=== PATIENT | male | born 1965 | race Caucasian/White ===

== ENCOUNTER 2017-08-27 12:09 | Inpatient (IN) | payer OTHER ==
[2017-08-27 12:51] VITALS: BMI 23.0
--- NOTE | 2017-08-27 15:12 | HP ---
CIWA Score - CIWA Score Nausea/Vomitin Muscle Tremors: 3 Anxiety: 3 Agitation: 2 Paroxysmal Sweats: 1-Minimal Palms Moist Orientation: 0-Oriented Tacttile Disturbances: 1-Very Mild Itch/Numbness Auditory Disturbances: 1-Very Mild Visual Disturbances: 0-None Headache: 2-Mild CIWA-Ar Total Score: 16 Admission ROS BHS - HPI Chief Complaint: i need help to stop drinking alcohol,cocaine Allergies/Adverse Reactions: Allergies Allergy/AdvReac Type Severity Reaction Status Date / Time No Known Allergies Allergy Verified 08/27/17 14:47 History of Present Illness: this 51 years old veronica chavira alcohol dependence and cocaine dependence,seeking detox,withdrawal symptom,last detox [facility] in [place] 9 years ago hiv since 1999 hepatitis c treated fell from height in 2000 treated at [facility] multiple fx of right wrist,right hand,right ribs with peumothorax weight loss no significant period of sobriety rupture of brain aneurysm in 2000 - Ebola screening Have you traveled outside of the country in the last 21 days: No Have you had contact with anyone from an Ebola affected area: No Have you been sick,other than usual withdrawal symptoms: No Do you have a fever: No - Review of Systems Constitutional: Loss of Appetite, Malaise, Night Sweats, Changes in sleep, Weakness, Unintentional Wgt. Loss EENT: reports: Nose Congestion Respiratory: reports: No Symptoms reported Cardiac: reports: No Symptoms Reported GI: reports: Diarrhea, Nausea, Vomiting, Abdominal cramping : reports: No Symptoms Reported Musculoskeletal: reports: Back Pain, Muscle Pain Integumentary: reports: Dryness Neuro: reports: Tremors Endocrine: reports: No Symptoms Reported Hematology: reports: No Symptoms Reported, Other (hiv) Psychiatric: reports: No Sypmtoms Reported, Judgement Intact, Mood/Affect Appropiate Patient History - Patient Medical History Hx Asthma: No Hx Chronic Obstructive Pulmonary Disease (COPD): No Hx Cancer: No Hx Cardiac Disorders: No Hx Congestive Heart Failure: No Hx Hypertension: No Hx Hypercholesterolemia: No Hx Pacemaker: No HX Cerebrovascular Accident: No Hx Seizures: No Hx Dementia: No Hx Diabetes: No Hx Gastrointestinal Disorders: No Hx Liver Disease: No Hx Genitourinary Disorders: No Hx Sexually Transmitted Disorders: No Hx Renal Disease (ESRD): No Hx Thyroid Disease: No Hx Human Immunodeficiency Virus (HIV): Yes (since 1999) Hx Hepatitis C: Yes (treated) Hx Depression: No Hx Suicide Attempt: No Hx Bipolar Disorder: No Hx Schizophrenia: No Other Medical History: no suicidal,no homicidal - Patient Surgical History Past Surgical History: Yes Hx Neurologic Surgery: Yes (Sx Brain aneurysm in 2000) Hx Lung Surgery: Yes (R chest tube in 1999.) Hx Orthopedic Surgery: Yes (R arm sx from fx in 1999.) Anesthesia Reaction: No - PPD History Previous Implant?: Yes Documented Results: Negative w/o proof Implanted On Prior [facility] Admission?: No PPD to be Administered?: Yes - Smoking Cessation Smoking history: Never smoked Hx Chewing Tobacco Use: No Initiated information on smoking cessation: No - Substance & Tx. History Hx Alcohol Use: Yes Substance Use Type: Alcohol Hx Substance Use Treatment: Yes ([facility] in 2008) - Substances Abused Alcohol Route: Oral Frequency: Daily Amount used: 1 LITER RUM 3 6PKS BEER Age of first use: 19 Date of Last Use: 08/27/17 Cocaine Route: Inhalation Frequency: Daily Amount used: 1/2 GRAM Age of first use: 22 Date of Last Use: 08/26/17 Family Disease History - Family Disease History Family Disease History: Other: Father (alcohol ), Mother () Admission Physical Exam S - Vital Signs Vital Signs: Vital Signs - 24 hr 08/27/17 12:49 Temperature 96.4 F L Pulse Rate 90 Respiratory 19 Rate Blood Pressure 144/84 - Physical General Appearance: Yes: Moderate Distress, Tremorous, Irritable, Sweating, Anxious HEENTM: Yes: Normal ENT Inspection, SAHARA, Pharynx Normal, Nasal Congestion Respiratory: Yes: Lungs Clear, Normal Breath Sounds, No Respiratory Distress Neck: Yes: Within Normal Limits, Supple, Trachea in good position Breast: Yes: Within Normal Limits Cardiology: Yes: Within Normal Limits, Regular Rhythm, Regular Rate, S1, S2 Abdominal: Yes: Within Normal Limits, Normal Bowel Sounds, Non Tender, Flat, Soft Genitourinary: Yes: Within Normal Limits Back: Yes: Muscle Spasm Musculoskeletal: Yes: Back pain, Muscle Pain Extremities: Yes: Within Normal Limits, Normal Range of Motion, Tremors Neurological: Yes: 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 maker 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 intact, Fully Oriented, Alert, Motor Strength 5/5 Integumentary: Yes: Dry Lymphatic: Yes: Within Normal Limits - Diagnostic (1) Alcohol dependence with uncomplicated withdrawal Current Visit: Yes Status: Acute (2) Cocaine dependence Current Visit: Yes Status: Acute (3) Weight loss Current Visit: Yes Status: Acute (4) HIV (human immunodeficiency virus infection) Current Visit: Yes Status: Acute (5) Right wrist fracture Current Visit: Yes Status: Acute (6) Right hand fracture Current Visit: Yes Status: Acute (7) Right rib fracture Current Visit: Yes Status: Acute Cleared for Admission [facility] - Detox or Rehab [facility] Level of Care: Medically Managed Detox Regimen/Protocol: Librium [facility] Breath Alcohol Content Breath Alcohol Content: 0.184 Urine Drug Screen - Results Drug Screen Negative: No Urine Drug Screen Results: TYLOR-Cocaine
[2017-08-27] MEDS ORDERED: chlordiazePOXIDE HCL 25 MG CAPSULE PO PRN (15:32)
[2017-08-27] MEDS ORDERED: MENTHOL/PHENOL 1 EACH UD MM PRN (15:32)
[2017-08-27] MEDS ORDERED: LOPERAMIDE HCL 2 MG CAPSULE PO PRN (15:32)
[2017-08-27] MEDS ORDERED: guaiFENesin/D-METHORPHAN HB 10 ML UNIT-DOSE CUPS PO PRN (15:32)
[2017-08-27] MEDS ORDERED: MAGNESIUM HYDROX 2400MG/30ML ORAL SUSPENSION 30 ML CUP PO PRN (15:32)
[2017-08-27] MEDS ORDERED: MAGNESIUM CITRATE 300 ML BOTTLE PO PRN (15:32)
[2017-08-27] MEDS ORDERED: P-EPHED 60MG/TRIPROLIDI 2.5MG TABLET PO PRN (15:32)
[2017-08-27] MEDS ORDERED: MAG HYDROX/AL HYDROX/SIMETH 30 ML UNIT-DOSE CUP PO PRN (15:32)
[2017-08-27] MEDS ORDERED: ACETAMINOPHEN 325 MG TABLET (FP) PO PRN (15:32)
[2017-08-27] MEDS ORDERED: chlordiazePOXIDE HCL 25 MG CAPSULE PO ONE (15:50)
[2017-08-27] MEDS: chlordiazePOXIDE HCL 25 MG CAPSULE PO SCH ×2 (18:14→22:05)
[2017-08-27] MEDS ORDERED: MELATONIN 5 MG TABLETS PO PRN (22:00)
[2017-08-27] MEDS: THIAMINE HCL 100 MG TABLET (FP) PO SCH (22:05)
[2017-08-28] MEDS: chlordiazePOXIDE HCL 25 MG CAPSULE PO SCH ×4 (05:56→22:09)
[2017-08-28 09:25] LABS: HEMOGLOBIN 14.3 GM/dL (11.7-16.9); MCH 31.4 pg (25.7-33.7); MCHC 34.1 g/dl (32.0-35.9); MEAN CELL VOLUME 92.2 fl (80-96); MEAN PLT VOLUME 8.1 fl (7.5-11.1); PLATELET COUNT 134 K/MM3 (134-434); RBC 4.55 M/mm3 (4.00-5.60); RDW 13.6 % (11.9-15.9); WHITE BLOOD COUNT 3.8 K/mm3 (4.0-10.0)
[2017-08-28] MEDS: EMTRICITAB/RILPIVIRINE/TENOFOV 1 EACH TABLET PO SCH (10:03)
[2017-08-28] MEDS: PRENATAL VITAMINS W/ FOLIC ACID TABLET (FP) PO SCH (10:03)
[2017-08-28 10:12] LABS: CHLORIDE 105 mmol/L (98-107); POTASSIUM 3.5 mmol/L (3.5-5.1); SODIUM 140 mmol/L (136-145)
--- NOTE | 2017-08-28 10:15 | EKG ---
Test Reason : Blood Pressure : / mmHG Vent. Rate : 073 BPM Atrial Rate : 073 BPM P-R Int : 222 ms QRS Dur : 108 ms QT Int : 398 ms P-R-T Axes : 049 043 064 degrees QTc Int : 438 ms SINUS RHYTHM WITH 1ST DEGREE A-V BLOCK OTHERWISE NORMAL ECG NO PREVIOUS ECGS AVAILABLE Confirmed by MAVIS NEWBY MD ([id number]) on 08/28/2017 10:15:34 AM Referred By: Confirmed By:MAVIS NEWBY MD
[2017-08-28 10:23] LABS: ALBUMIN 3.7 g/dl (3.4-5.0); ALK PHOS 77 U/L (45-117); ANION GAP 9 (8-16); BILIRUBIN,TOTAL 0.7 mg/dL (0.2-1.0); BLOOD UREA NITROGEN 16 mg/dL (7-18); CALCIUM 8.8 mg/dL (8.5-10.1); CO2 26 mmol/L (21-32); CREATININE 0.9 mg/dL (0.7-1.3); GLUCOSE,RANDOM 159 mg/dL (74-106); SGOT/AST 303 U/L (15-37); SGPT/ALT 279 U/L (12-78); TOT PROT 7.8 g/dl (6.4-8.2)
--- NOTE | 2017-08-28 11:14 | PN ---
[facility] CIWA - CIWA Score Nausea/Vomitin-No Nausea/No Vomiting Muscle Tremors: 4-Moderate,w/Arms Extend Anxiety: 3 Agitation: 3 Paroxysmal Sweats: 3 Orientation: 2-Disoriented Date<2 days Tacttile Disturbances: 2-Mild Itch/Numbness/Burn Auditory Disturbances: 0-None Visual Disturbances: 0-None Headache: 0-None Present CIWA-Ar Total Score: 17 S Progress Note (SOAP) Subjective: Tremors, Fatigue, Sweating, Diarrhea. Objective: PATIENT A & O X 2 (UNCERTAIN ABOUT CURRENT DAY / DATE). PATIENT OBSERVED AMBULATING ON UNIT. NO ACUTE DISTRESS. 08/28/17 11:12 Vital Signs Temperature 97.7 F 08/28/17 06:17 Pulse Rate 76 08/28/17 10:30 Respiratory Rate 18 08/28/17 10:30 Blood Pressure 133/75 08/28/17 06:17 O2 Sat by Pulse Oximetry (%) Laboratory Tests 08/28/17 08/28/17 07:00 07:00 WBC 3.8 L RBC 4.55 Hgb 14.3 Hct 42.0 MCV 92.2 MCH 31.4 MCHC 34.1 RDW 13.6 Plt Count 134 MPV 8.1 Sodium 140 Potassium 3.5 Chloride 105 Carbon Dioxide 26 Anion Gap 9 BUN 16 Creatinine 0.9 Creat Clearance w eGFR > 60 Random Glucose 159 H Calcium 8.8 Total Bilirubin 0.7 AST 303 H ALT 279 H Alkaline Phosphatase 77 Total Protein 7.8 Albumin 3.7 LABS NOTED. UA, RPR RESULTS PENDING. 08/28/17 11:14 Assessment: 08/28/17 11:14 WITHDRAWAL SYMPTOMS. Plan: CONTINUE DETOX. INCREASE DAILY PO FLUID INTAKE. REPEAT AST, ALT ON 08/30/2017 FOR ELEVATED ADMISSION LEVELS. BGM ACBK FOR ELEVATED ADMISSION RANDOM GLUCOSE LEVEL.
[2017-08-28 11:17] LABS: SICKLE CELL SCREEN NEGATIVE (NEGATIVE)
[2017-08-28 18:19] LABS: URINE APPEARANCE CLEAR; URINE BILIRUBIN NEGATIVE (<2.0 mg/dL); URINE COLOR LTYELLOW; URINE GLUCOSE (UA) NEGATIVE (NEGATIVE); URINE KETONE NEGATIVE (NEGATIVE); URINE LEUK ESTERASE NEGATIVE (NEGATIVE); URINE NITRITE NEGATIVE (NEGATIVE); URINE PROTEIN NEGATIVE (NEGATIVE); URINE UROBILINOGEN NEGATIVE mg/dL (0.2-1.0)
[2017-08-28 18:30] LABS: EPI CELLS RARE /HPF (FEW)
[2017-08-28] MEDS: THIAMINE HCL 100 MG TABLET (FP) PO SCH (22:09)
[2017-08-29] MEDS: chlordiazePOXIDE HCL 25 MG CAPSULE PO SCH ×2 (05:37→10:09)
[2017-08-29] MEDS: EMTRICITAB/RILPIVIRINE/TENOFOV 1 EACH TABLET PO SCH (07:31)
[2017-08-29] MEDS: PRENATAL VITAMINS W/ FOLIC ACID TABLET (FP) PO SCH (10:09)
--- NOTE | 2017-08-29 14:09 | PN ---
S CIWA - CIWA Score Nausea/Vomitin-No Nausea/No Vomiting Muscle Tremors: 3 Anxiety: 4-Mod. Anxious/Guarded Agitation: 3 Paroxysmal Sweats: No Perspiration Orientation: 0-Oriented Tacttile Disturbances: 2-Mild Itch/Numbness/Burn Auditory Disturbances: 0-None Visual Disturbances: 2-Mild Sensitivity Headache: 0-None Present CIWA-Ar Total Score: 14 BHS Progress Note (SOAP) Subjective: Tremors, Body Aches, Sweating. Objective: 08/29/17 14:10 Vital Signs Temperature 97.9 F 08/29/17 09:17 Pulse Rate 82 08/29/17 09:17 Respiratory Rate 18 08/29/17 09:17 Blood Pressure 123/82 08/29/17 09:17 O2 Sat by Pulse Oximetry (%) Laboratory Tests 08/27/17 08/28/17 08/28/17 15:00 07:00 07:00 WBC 3.8 L RBC 4.55 Hgb 14.3 Hct 42.0 MCV 92.2 MCH 31.4 MCHC 34.1 RDW 13.6 Plt Count 134 MPV 8.1 Sickle Cell Screen Negative Sodium 140 Potassium 3.5 Chloride 105 Carbon Dioxide 26 Anion Gap 9 BUN 16 Creatinine 0.9 Creat Clearance w eGFR > 60 POC Glucometer Random Glucose 159 H Calcium 8.8 Total Bilirubin 0.7 AST 303 H ALT 279 H Alkaline Phosphatase 77 Total Protein 7.8 Albumin 3.7 Urine Color Ltyellow Urine Appearance Clear Urine pH 6.0 Ur Specific [place] 1.004 Urine Protein Negative Urine Glucose (UA) Negative Urine Ketones Negative Urine Blood 1+ H Urine Nitrite Negative Urine Bilirubin Negative Urine Urobilinogen Negative Ur Leukocyte Esterase Negative Urine WBC (Auto) <1 Urine RBC (Auto) 1 Ur Epithelial Cells Rare RPR Titer 08/28/17 08/29/17 08/29/17 07:00 05:36 05:40 WBC RBC Hgb Hct MCV MCH MCHC RDW Plt Count MPV Sickle Cell Screen Sodium Potassium Chloride Carbon Dioxide Anion Gap BUN Creatinine Creat Clearance w eGFR POC Glucometer 142 314 Random Glucose Calcium Total Bilirubin AST ALT Alkaline Phosphatase Total Protein Albumin Urine Color Urine Appearance Urine pH Ur Specific [place] Urine Protein Urine Glucose (UA) Urine Ketones Urine Blood Urine Nitrite Urine Bilirubin Urine Urobilinogen Ur Leukocyte Esterase Urine WBC (Auto) Urine RBC (Auto) Ur Epithelial Cells RPR Titer Nonreactive LABS NOTED. Assessment: 08/29/17 14:10 WITHDRAWAL SYMPTOMS. Plan: CONTINUE DETOX. INCREASE DAILY PO FLUID INTAKE. LIDODERM PATCH FOR LOWER BACK PAIN. REPEAT AST, ALT FOR TOMORROW AM FOR ELEVATED ADMISSION LEVELS.
[2017-08-29] MEDS: LIDOCAINE 5% TOPICAL PATCH TP SCH (15:13)
[2017-08-29] MEDS: chlordiazePOXIDE 5 MG CAPSULE PO SCH ×2 (18:04→22:11)
[2017-08-29] MEDS: IBUPROFEN 400 MG TABLET (FP) PO PRN (18:06)
[2017-08-29] MEDS: THIAMINE HCL 100 MG TABLET (FP) PO SCH (22:11)
[2017-08-29] MEDS: LIDOCAINE PATCH REMOVAL MC SCH (22:12)
[2017-08-30] MEDS: chlordiazePOXIDE 5 MG CAPSULE PO SCH ×2 (05:17→10:14)
[2017-08-30] MEDS: EMTRICITAB/RILPIVIRINE/TENOFOV 1 EACH TABLET PO SCH (08:05)
[2017-08-30] MEDS: LIDOCAINE 5% TOPICAL PATCH TP SCH (10:14)
[2017-08-30] MEDS: PRENATAL VITAMINS W/ FOLIC ACID TABLET (FP) PO SCH (10:14)
[2017-08-30] MEDS: IBUPROFEN 400 MG TABLET (FP) PO PRN (10:16)
[2017-08-30 10:53] LABS: SGOT/AST 233 U/L (15-37); SGPT/ALT 262 U/L (12-78)
[2017-08-30] MEDS ORDERED: WITCH HAZEL 50% (TUCKS) 40 PAD/JAR PAD TP PRN (12:16)
[2017-08-30] MEDS ORDERED: BENZOCAINE 28 GM HEMORRHOIDAL OINTMENT PR PRN (12:16)
--- NOTE | 2017-08-30 12:21 | PN ---
BHS Progress Note (SOAP) Subjective: Body Aches, Anxious. Objective: PATIENT A & O X 3, OBSERVED AMBULATING ON UNIT. NO ACUTE DISTRESS. 08/30/17 12:18 Vital Signs Temperature 98.8 F 08/30/17 09:33 Pulse Rate 60 08/30/17 09:33 Respiratory Rate 18 08/30/17 09:33 Blood Pressure 122/74 08/30/17 09:33 O2 Sat by Pulse Oximetry (%) Laboratory Tests 08/27/17 08/28/17 08/28/17 15:00 07:00 07:00 WBC 3.8 L RBC 4.55 Hgb 14.3 Hct 42.0 MCV 92.2 MCH 31.4 MCHC 34.1 RDW 13.6 Plt Count 134 MPV 8.1 Sickle Cell Screen Negative Sodium 140 Potassium 3.5 Chloride 105 Carbon Dioxide 26 Anion Gap 9 BUN 16 Creatinine 0.9 Creat Clearance w eGFR > 60 POC Glucometer Random Glucose 159 H Calcium 8.8 Total Bilirubin 0.7 AST 303 H ALT 279 H Alkaline Phosphatase 77 Total Protein 7.8 Albumin 3.7 Urine Color Ltyellow Urine Appearance Clear Urine pH 6.0 Ur Specific [place] 1.004 Urine Protein Negative Urine Glucose (UA) Negative Urine Ketones Negative Urine Blood 1+ H Urine Nitrite Negative Urine Bilirubin Negative Urine Urobilinogen Negative Ur Leukocyte Esterase Negative Urine WBC (Auto) <1 Urine RBC (Auto) 1 Ur Epithelial Cells Rare RPR Titer 08/28/17 08/29/17 08/29/17 07:00 05:36 05:40 WBC RBC Hgb Hct MCV MCH MCHC RDW Plt Count MPV Sickle Cell Screen Sodium Potassium Chloride Carbon Dioxide Anion Gap BUN Creatinine Creat Clearance w eGFR POC Glucometer 142 314 Random Glucose Calcium Total Bilirubin AST ALT Alkaline Phosphatase Total Protein Albumin Urine Color Urine Appearance Urine pH Ur Specific [place] Urine Protein Urine Glucose (UA) Urine Ketones Urine Blood Urine Nitrite Urine Bilirubin Urine Urobilinogen Ur Leukocyte Esterase Urine WBC (Auto) Urine RBC (Auto) Ur Epithelial Cells RPR Titer Nonreactive 08/30/17 08/30/17 05:20 08:00 WBC RBC Hgb Hct MCV MCH MCHC RDW Plt Count MPV Sickle Cell Screen Sodium Potassium Chloride Carbon Dioxide Anion Gap BUN Creatinine Creat Clearance w eGFR POC Glucometer 192 Random Glucose Calcium Total Bilirubin AST 233 H D ALT 262 H Alkaline Phosphatase Total Protein Albumin Urine Color Urine Appearance Urine pH Ur Specific [place] Urine Protein Urine Glucose (UA) Urine Ketones Urine Blood Urine Nitrite Urine Bilirubin Urine Urobilinogen Ur Leukocyte Esterase Urine WBC (Auto) Urine RBC (Auto) Ur Epithelial Cells RPR Titer LABS NOTED. Assessment: 08/30/17 12:20 WITHDRAWAL SYMPTOMS. Plan: CONTINUE DETOX. INCREASE DAILY PO FLUID INTAKE. PATIENT SCHEDULED FOR D/C TOMORROW.
[2017-08-30] MEDS: chlordiazePOXIDE HCL 10 MG CAPSULE PO SCH ×2 (17:59→22:24)
--- NOTE | 2017-08-30 19:23 | PN ---
[facility] Progress Note Note: Patient requesting to leave today instead of in morning. Patient still has slight tremors of hands. Discussed relapse and overdose risk upon discharge and patient verbalized an understanding. Discussed abnormal liver tests and elevated blood glucose noted during this admission and encouraged patient to f/ u w/ primary care provider upon discharge. Patient to continue to f/u HIV care. Patient states has an appointment w/ Dr. Farooq at [facility] for 09/05 at 4:30 pm. Patient has agreed to remain until tomorrow.
[2017-08-30] MEDS: LIDOCAINE PATCH REMOVAL MC SCH (22:25)
[2017-08-30] MEDS: THIAMINE HCL 100 MG TABLET (FP) PO SCH (22:35)
[2017-08-31] MEDS: chlordiazePOXIDE HCL 10 MG CAPSULE PO SCH (05:09)
[2017-08-31 06:25] VITALS: BP 115/73; PULSE 67; TEMP 97.5
[2017-08-31] MEDS: EMTRICITAB/RILPIVIRINE/TENOFOV 1 EACH TABLET PO SCH (07:00)
--- NOTE | 2017-08-31 20:03 | DS ---
[facility] Detox Discharge Summary Admission Date: 08/27/17 Discharge Date: 08/31/17 - History Present History: Alcohol Dependence, Cocaine Dependence Additional Comments: PATIENT GOING TO [facility] ([facility]) FOR AFTERCARE. PATIENT WAS DISCHARGED FROM DETOX UNIT IN STABLE MEDICAL CONDITION. Pertinent Past History: History of Right Rib Fracture, History of Right Hand Fracture, History of Right Wrist Fracture, Weight Loss, Hep C, HIV, History of Bleeding in Brain due to Aneurysm, S/P Brain Surgery. - Physical Exam Results Vital Signs: Vital Signs Temperature 97.5 F L 08/31/17 06:25 Pulse Rate 67 08/31/17 06:25 Respiratory Rate 18 08/31/17 06:25 Blood Pressure 115/73 08/31/17 06:25 O2 Sat by Pulse Oximetry (%) Pertinent Admission Physical Exam Findings: WITHDRAWAL SYMPTOMS. Laboratory Tests 08/27/17 08/28/17 08/28/17 15:00 07:00 07:00 WBC 3.8 L RBC 4.55 Hgb 14.3 Hct 42.0 MCV 92.2 MCH 31.4 MCHC 34.1 RDW 13.6 Plt Count 134 MPV 8.1 Sickle Cell Screen Negative Sodium 140 Potassium 3.5 Chloride 105 Carbon Dioxide 26 Anion Gap 9 BUN 16 Creatinine 0.9 Creat Clearance w eGFR > 60 POC Glucometer Random Glucose 159 H Calcium 8.8 Total Bilirubin 0.7 AST 303 H ALT 279 H Alkaline Phosphatase 77 Total Protein 7.8 Albumin 3.7 Urine Color Ltyellow Urine Appearance Clear Urine pH 6.0 Ur Specific [place] 1.004 Urine Protein Negative Urine Glucose (UA) Negative Urine Ketones Negative Urine Blood 1+ H Urine Nitrite Negative Urine Bilirubin Negative Urine Urobilinogen Negative Ur Leukocyte Esterase Negative Urine WBC (Auto) <1 Urine RBC (Auto) 1 Ur Epithelial Cells Rare RPR Titer 08/28/17 08/29/17 08/29/17 07:00 05:36 05:40 WBC RBC Hgb Hct MCV MCH MCHC RDW Plt Count MPV Sickle Cell Screen Sodium Potassium Chloride Carbon Dioxide Anion Gap BUN Creatinine Creat Clearance w eGFR POC Glucometer 142 314 Random Glucose Calcium Total Bilirubin AST ALT Alkaline Phosphatase Total Protein Albumin Urine Color Urine Appearance Urine pH Ur Specific [place] Urine Protein Urine Glucose (UA) Urine Ketones Urine Blood Urine Nitrite Urine Bilirubin Urine Urobilinogen Ur Leukocyte Esterase Urine WBC (Auto) Urine RBC (Auto) Ur Epithelial Cells RPR Titer Nonreactive 08/30/17 08/30/17 08/31/17 05:20 08:00 05:07 WBC RBC Hgb Hct MCV MCH MCHC RDW Plt Count MPV Sickle Cell Screen Sodium Potassium Chloride Carbon Dioxide Anion Gap BUN Creatinine Creat Clearance w eGFR POC Glucometer 192 248 Random Glucose Calcium Total Bilirubin AST 233 H D ALT 262 H Alkaline Phosphatase Total Protein Albumin Urine Color Urine Appearance Urine pH Ur Specific [place] Urine Protein Urine Glucose (UA) Urine Ketones Urine Blood Urine Nitrite Urine Bilirubin Urine Urobilinogen Ur Leukocyte Esterase Urine WBC (Auto) Urine RBC (Auto) Ur Epithelial Cells RPR Titer LABS NOTED. - Treatment Hospital Course: Detox Protocol Followed, Detoxed Safely, Responded well, Discharged Condition Good, Rehab Referral Accepted Patient has Accepted a Rehab Referral to: [facility] ([place], [place] - Medication Discharge Medications: Ambulatory Orders Emtricitab/Rilpivirine/Tenofov [Complera -] 1 each PO DAILY 30 Days #30 tablet 08/31/17 - Diagnosis (1) Alcohol dependence with uncomplicated withdrawal Status: Acute (2) Cocaine dependence Status: Acute Qualifiers: Substance use status: uncomplicated Qualified Code(s): F14.20 - Cocaine dependence, uncomplicated (3) HIV (human immunodeficiency virus infection) Status: Chronic (4) Right hand fracture Status: Acute Qualifiers: Encounter type: sequela Fracture type: closed Qualified Code(s): S62.91XS - Unspecified fracture of right wrist and hand, sequela (5) Right rib fracture Status: Acute Qualifiers: Encounter type: sequela Rib fracture type: multiple ribs Fracture type: closed Qualified Code(s): S22.41XS - Multiple fractures of ribs, right side, sequela (6) Right wrist fracture Status: Acute Qualifiers: Encounter type: sequela Fracture type: closed Qualified Code(s): S62.101S - Fracture of unspecified carpal bone, right wrist, sequela (7) S/P brain surgery Status: Acute (8) Weight loss Status: Acute (9) Bleeding in brain due to brain aneurysm Status: Chronic - AMA Did Patient Leave Against Medical Advice: No
== END 2017-08-31 09:22 | disposition home or self-care (01) | DRG 774 ==
LOC: EDBD 12:09 → YASAS 12:09 → Y3N 15:13
PROVIDERS: ADMIT Surgery; ATTEND Surgery
PROC: HZ2ZZZZ Detoxification Services for Substance Abuse Treatment (ICD-10-PCS; principal; 2017-08-27)
DX: F10.230 Alcohol dependence with withdrawal, uncomplicated (principal); F14.20 Cocaine dependence, uncomplicated; Z21 Asymptomatic human immunodeficiency virus [HIV] infection status; R63.4 Abnormal weight loss; Z68.23 Body mass index [BMI] 23.0-23.9, adult; Z87.81 Personal history of (healed) traumatic fracture
CPT/HCPCS: 36415; 80053; 81003; 81015; 82962; 84450; 84460; 85027; 85660; 86593; 93005; 93010

== ENCOUNTER 2017-10-16 14:46 | Inpatient (IN) | payer OTHER ==
[2017-10-16 16:17] VITALS: BMI 22.1
--- NOTE | 2017-10-16 20:17 | HP ---
CIWA Score - CIWA Score Nausea/Vomitin-No Nausea/No Vomiting Anxiety: 3 Agitation: 3 Paroxysmal Sweats: 3 Orientation: 0-Oriented Tacttile Disturbances: 0-None Auditory Disturbances: 0-None Visual Disturbances: 0-None Headache: 0-None Present Admission ROS BHS - HPI Chief Complaint: alcohol withdrawal symptoms Allergies/Adverse Reactions: Allergies Allergy/AdvReac Type Severity Reaction Status Date / Time No Known Allergies Allergy Verified 10/16/17 16:59 History of Present Illness: 51 yo male with alcohol, nicotine and cocaine dependence is here seeking detox d /t recent relapse, this is one of multiple admissions, last detox [facility] 08/27/17 - 08/31/17. PMHX: HIV+. Denies suicidal / homicidal ideation. Reports fall 1.5 weeks ago feel down the steps in his home while intoxicated and was evaluated at [facility]. Denies hx of blackouts or seizures. Longest period of sobriety 19 years. Reference #: [id number] Others' Prescriptions Patient Name: Giovanny Nobles Date: 1965 Address: [address] [place] [address] [address] [place] [address] Sex: Male Rx Written Rx Dispensed Drug Quantity Days Supply Prescriber Name 10/15/2017 10/15/2017 acetaminophen-cod #3 tablet 20 3 Juan Velazquez Exam Limitations: No Limitations - Ebola screening Have you traveled outside of the country in the last 21 days: No Have you had contact with anyone from an Ebola affected area: No Have you been sick,other than usual withdrawal symptoms: No Do you have a fever: No - Review of Systems Constitutional: Loss of Appetite, Weakness, Unintentional Wgt. Loss (15 lbs in past month) EENT: reports: No Symptoms Reported Respiratory: reports: No Symptoms reported Cardiac: reports: No Symptoms Reported GI: reports: Poor Appetite, Poor Fluid Intake : reports: No Symptoms Reported Musculoskeletal: reports: Joint Pain (right knee) Integumentary: reports: No Symptoms Reported Neuro: reports: No Symptoms reported Endocrine: reports: Increased Thirst Hematology: reports: No Symptoms Reported Psychiatric: reports: Orientated x3, Anxious Patient History - Patient Medical History Hx Anemia: No Hx Asthma: No Hx Chronic Obstructive Pulmonary Disease (COPD): No Hx Cancer: No Hx Cardiac Disorders: No Hx Congestive Heart Failure: No Hx Hypertension: No Hx Hypercholesterolemia: No Hx Pacemaker: No HX Cerebrovascular Accident: No Hx Seizures: No Hx Dementia: No Hx Diabetes: No Hx Gastrointestinal Disorders: No Hx Liver Disease: No Hx Genitourinary Disorders: No Hx Sexually Transmitted Disorders: No Hx Renal Disease (ESRD): No Hx Thyroid Disease: No Hx Human Immunodeficiency Virus (HIV): Yes (since 1999, on Complera) Hx Hepatitis C: Yes (treated) Hx Depression: No Hx Suicide Attempt: No Hx Bipolar Disorder: No Hx Schizophrenia: No - Patient Surgical History Past Surgical History: Yes Hx Neurologic Surgery: Yes (Sx Brain aneurysm in 2000) Hx Lung Surgery: Yes (R chest tube in 1999.) Hx Orthopedic Surgery: Yes (R arm sx from fx in 1999.) Anesthesia Reaction: No - PPD History Previous Implant?: Yes Documented Results: Negative w/proof Implanted On Prior [facility] Admission?: Yes Date: 08/29/17 Results: 0 mm PPD to be Administered?: No - Smoking Cessation Smoking history: Never smoked Hx Chewing Tobacco Use: No Initiated information on smoking cessation: No - Substance & Tx. History Hx Alcohol Use: Yes Hx Substance Use: Yes Substance Use Type: Alcohol Hx Substance Use Treatment: Yes ([facility] 08/27/17 -08/31/17) - Substances Abused Alcohol Route: Oral Frequency: Daily Amount used: fifth of vodka Age of first use: 17 Date of Last Use: 10/16/17 Cocaine Route: Inhalation Frequency: Daily Amount used: 1 gram Age of first use: 25 Date of Last Use: 10/16/17 Family Disease History - Family Disease History Family Disease History: Other: Father (alcohol ), Mother () Admission Physical Exam [facility] - Vital Signs Vital Signs: Vital Signs - 24 hr 10/16/17 16:15 Temperature 99 F Pulse Rate 69 Respiratory 18 Rate Blood Pressure 148/98 - Physical General Appearance: Yes: Appropriately Dressed, Thin, Anxious HEENTM: Yes: Hearing grossly Normal, Normal ENT Inspection, Normocephalic, Normal Voice, SAHARA, Pharynx Normal, Tm's normal Respiratory: Yes: Within Normal Limits Neck: Yes: Within Normal Limits Breast: Yes: Breast Exam Deferred Cardiology: Yes: Regular Rhythm, Regular Rate Abdominal: Yes: Normal Bowel Sounds, Non Tender, Flat, Soft Genitourinary: Yes: Within Normal Limits Back: Yes: Normal Inspection Extremities: Yes: Normal Capillary Refill, Normal Inspection, Normal Range of Motion, Non-Tender Neurological: Yes: 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, Fully Oriented, Alert, Motor Strength 5/5, Depressed Affect Integumentary: Yes: Normal Color, Warm, Diaphoresis Lymphatic: Yes: Within Normal Limits - Diagnostic (1) Alcohol dependence with uncomplicated withdrawal Current Visit: Yes Status: Acute (2) Cocaine dependence Current Visit: Yes Status: Acute Qualifiers: Substance use status: uncomplicated Qualified Code(s): F14.20 - Cocaine dependence, uncomplicated (3) Weight loss Current Visit: Yes Status: Acute (4) HIV (human immunodeficiency virus infection) Current Visit: Yes Status: Chronic Cleared for Admission [facility] - Detox or Rehab [facility] Level of Care: Medically Managed Detox Regimen/Protocol: Librium [facility] Breath Alcohol Content Breath Alcohol Content: 0 Urine Drug Screen - Results Drug Screen Negative: No Urine Drug Screen Results: TYLOR-Cocaine, OPI-Opiates, BZO-Benzodiazepines
[2017-10-16] MEDS ORDERED: MAG HYDROX/AL HYDROX/SIMETH 30 ML UNIT-DOSE CUP PO PRN (20:22)
[2017-10-16] MEDS ORDERED: MAGNESIUM CITRATE 300 ML BOTTLE PO PRN (20:22)
[2017-10-16] MEDS ORDERED: LOPERAMIDE HCL 2 MG CAPSULE PO PRN (20:22)
[2017-10-16] MEDS ORDERED: MENTHOL/PHENOL 1 EACH UD MM PRN (20:22)
[2017-10-16] MEDS ORDERED: ACETAMINOPHEN 325 MG TABLET (FP) PO PRN (20:22)
[2017-10-16] MEDS ORDERED: P-EPHED 60MG/TRIPROLIDI 2.5MG TABLET PO PRN (20:22)
[2017-10-16] MEDS ORDERED: chlordiazePOXIDE HCL 25 MG CAPSULE PO PRN (20:22)
[2017-10-16] MEDS ORDERED: IBUPROFEN 400 MG TABLET (FP) PO PRN (20:22)
[2017-10-16] MEDS ORDERED: MAGNESIUM HYDROX 2400MG/30ML ORAL SUSPENSION 30 ML CUP PO PRN (20:22)
[2017-10-16] MEDS ORDERED: chlordiazePOXIDE HCL 25 MG CAPSULE PO ONE (20:22)
[2017-10-16] MEDS ORDERED: guaiFENesin/D-METHORPHAN HB 10 ML UNIT-DOSE CUPS PO PRN (20:22)
[2017-10-16] MEDS: THIAMINE HCL 100 MG TABLET (FP) PO SCH (22:08)
[2017-10-16] MEDS: chlordiazePOXIDE HCL 25 MG CAPSULE PO SCH (22:08)
[2017-10-16] MEDS: MELATONIN 5 MG TABLETS PO PRN (22:09)
[2017-10-16 23:57] LABS: URINE APPEARANCE CLEAR; URINE BILIRUBIN NEGATIVE (<2.0 mg/dL); URINE COLOR AMBER; URINE GLUCOSE (UA) NEGATIVE (NEGATIVE); URINE KETONE NEGATIVE (NEGATIVE); URINE LEUK ESTERASE NEGATIVE (NEGATIVE); URINE NITRITE NEGATIVE (NEGATIVE); URINE UROBILINOGEN 4.0 E.U/dl mg/dL (0.2-1.0)
[2017-10-16 23:58] LABS: URINE PROTEIN 1+ (NEGATIVE)
[2017-10-17 00:23] LABS: EPI CELLS RARE /HPF (FEW); URINE MUCUS FEW
[2017-10-17] MEDS: chlordiazePOXIDE HCL 25 MG CAPSULE PO SCH ×4 (05:34→22:03)
[2017-10-17] MEDS: PATIENT'S OWN MEDICATION (NON-FORMULARY) (Penicillin V Potassium [Pen Vee K -] 500 MG) PO SCH ×4 (10:15→20:03)
[2017-10-17 10:16] LABS: HEMATOCRIT 41.4 % (35.4-49); MCH 30.9 pg (25.7-33.7); MCHC 33.9 g/dl (32.0-35.9); MEAN CELL VOLUME 91.2 fl (80-96); MEAN PLT VOLUME 7.3 fl (7.5-11.1); PLATELET COUNT 181 K/MM3 (134-434); RBC 4.54 M/mm3 (4.00-5.60); RDW 14.3 % (11.9-15.9); WHITE BLOOD COUNT 4.6 K/mm3 (4.0-10.0)
[2017-10-17] MEDS: PRENATAL VITAMINS W/ FOLIC ACID TABLET (FP) PO SCH (10:16)
--- NOTE | 2017-10-17 11:59 | EKG ---
Test Reason : Blood Pressure : / mmHG Vent. Rate : 056 BPM Atrial Rate : 056 BPM P-R Int : 244 ms QRS Dur : 094 ms QT Int : 426 ms P-R-T Axes : 038 043 043 degrees QTc Int : 411 ms SINUS BRADYCARDIA WITH 1ST DEGREE A-V BLOCK OTHERWISE NORMAL ECG WHEN COMPARED WITH ECG OF 27-AUG-2017 17:50, T WAVE AMPLITUDE HAS INCREASED IN ANTERIOR LEADS Confirmed by CHANDRA MONCADA, MARIE ([id number]) on 10/17/2017 11:58:53 AM Referred By: Confirmed By:MARIE ARTIS MD
[2017-10-17 12:24] LABS: CHLORIDE 105 mmol/L (98-107); POTASSIUM 3.6 mmol/L (3.5-5.1); SODIUM 142 mmol/L (136-145)
[2017-10-17 12:33] LABS: ALBUMIN 3.4 g/dl (3.4-5.0); ALK PHOS 149 U/L (45-117); ANION GAP 10 MMOL/L (8-16); BLOOD UREA NITROGEN 16 mg/dL (7-18); CALCIUM 8.7 mg/dL (8.5-10.1); CO2 27 mmol/L (21-32); CREATININE 0.8 mg/dL (0.7-1.3); GLUCOSE,RANDOM 121 mg/dL (74-106); SGOT/AST 197 U/L (15-37); SGPT/ALT 152 U/L (12-78); TOT PROT 7.3 g/dl (6.4-8.2)
--- NOTE | 2017-10-17 16:48 | PN ---
[facility] CIWA - CIWA Score Nausea/Vomitin-No Nausea/No Vomiting Muscle Tremors: None Anxiety: 4-Mod. Anxious/Guarded Agitation: 3 Paroxysmal Sweats: 2 Orientation: 0-Oriented Tacttile Disturbances: 2-Mild Itch/Numbness/Burn Auditory Disturbances: 0-None Visual Disturbances: 3-Moderate Sensitivity Headache: 0-None Present CIWA-Ar Total Score: 14 S Progress Note (SOAP) Subjective: Anxious, Sweating, Diarrhea. Objective: PATIENT A & O X 3, OBSERVED AMBULATING ON UNIT. NO ACUTE DISTRESS. 10/17/17 16:45 Vital Signs Temperature 98.5 F 10/17/17 14:09 Pulse Rate 74 10/17/17 14:09 Respiratory Rate 18 10/17/17 14:09 Blood Pressure 135/80 10/17/17 14:09 O2 Sat by Pulse Oximetry (%) Laboratory Tests 10/16/17 10/17/17 10/17/17 Unknown 07:40 07:40 WBC 4.6 RBC 4.54 Hgb 14.0 Hct 41.4 MCV 91.2 MCH 30.9 MCHC 33.9 RDW 14.3 Plt Count 181 D MPV 7.3 L Sodium 142 Potassium 3.6 Chloride 105 Carbon Dioxide 27 Anion Gap 10 BUN 16 Creatinine 0.8 Creat Clearance w eGFR > 60 Random Glucose 121 H D Calcium 8.7 Total Bilirubin 1.0 AST 197 H ALT 152 H D Alkaline Phosphatase 149 H Total Protein 7.3 Albumin 3.4 Urine Color Heidy Urine Appearance Clear Urine pH 5.0 Ur Specific [place] 1.025 Urine Protein 1+ H Urine Glucose (UA) Negative Urine Ketones Negative Urine Blood Negative Urine Nitrite Negative Urine Bilirubin Negative Urine Urobilinogen 4.0 e.u/dl Ur Leukocyte Esterase Negative Urine WBC (Auto) 1 Urine RBC (Auto) 3 Ur Epithelial Cells Rare Urine Mucus Few RPR Titer 10/17/17 07:40 WBC RBC Hgb Hct MCV MCH MCHC RDW Plt Count MPV Sodium Potassium Chloride Carbon Dioxide Anion Gap BUN Creatinine Creat Clearance w eGFR Random Glucose Calcium Total Bilirubin AST ALT Alkaline Phosphatase Total Protein Albumin Urine Color Urine Appearance Urine pH Ur Specific [place] Urine Protein Urine Glucose (UA) Urine Ketones Urine Blood Urine Nitrite Urine Bilirubin Urine Urobilinogen Ur Leukocyte Esterase Urine WBC (Auto) Urine RBC (Auto) Ur Epithelial Cells Urine Mucus RPR Titer Nonreactive LABS NOTED. Assessment: 10/17/17 16:46 WITHDRAWAL SYMPTOMS. Plan: CONTINUE DETOX. INCREASE DAILY PO FLUID INTAKE. PRN IMMODIUM FOR DIARRHEA. HEPATIC FUNCTION PANEL ON 10/19/2017 FOR ABNORMAL ADMISSION HEPATIC LAB VALUES.
[2017-10-17] MEDS: MELATONIN 5 MG TABLETS PO PRN (22:03)
[2017-10-17] MEDS: THIAMINE HCL 100 MG TABLET (FP) PO SCH (22:03)
[2017-10-18] MEDS: PATIENT'S OWN MEDICATION (NON-FORMULARY) (Penicillin V Potassium [Pen Vee K -] 500 MG) PO SCH ×4 (03:48→20:37)
[2017-10-18] MEDS: chlordiazePOXIDE HCL 25 MG CAPSULE PO SCH ×3 (05:54→17:25)
[2017-10-18] MEDS: PRENATAL VITAMINS W/ FOLIC ACID TABLET (FP) PO SCH (10:14)
[2017-10-18] MEDS: chlordiazePOXIDE 5 MG CAPSULE PO SCH (22:05)
[2017-10-18] MEDS: THIAMINE HCL 100 MG TABLET (FP) PO SCH (22:06)
[2017-10-18] MEDS: MELATONIN 5 MG TABLETS PO PRN (22:06)
[2017-10-19] MEDS: PATIENT'S OWN MEDICATION (NON-FORMULARY) (Penicillin V Potassium [Pen Vee K -] 500 MG) PO SCH ×4 (05:28→23:31)
[2017-10-19] MEDS: chlordiazePOXIDE 5 MG CAPSULE PO SCH ×3 (05:28→18:51)
[2017-10-19] MEDS: PRENATAL VITAMINS W/ FOLIC ACID TABLET (FP) PO SCH (10:12)
[2017-10-19 10:20] LABS: BILIRUBIN,DIRECT 0.2 mg/dL (0.0-0.2); BILIRUBIN,TOTAL 0.4 mg/dL (0.2-1.0); TOT PROT 6.7 g/dl (6.4-8.2)
[2017-10-19] MEDS ORDERED: diazePAM 5 MG TABLET PO PRN (18:25)
--- NOTE | 2017-10-19 18:36 | PN ---
S CIWA - CIWA Score Nausea/Vomitin-No Nausea/No Vomiting Muscle Tremors: None Anxiety: 0-No Anxiety, at Ease Agitation: 0-Normal Activity Paroxysmal Sweats: No Perspiration Orientation: 0-Oriented Tacttile Disturbances: 0-None Auditory Disturbances: 0-None Visual Disturbances: 0-None Headache: 0-None Present CIWA-Ar Total Score: 0 [facility] Progress Note (SOAP) Subjective: pt states that he feels good- no complaints Obj: increased liver enzymes noted: AST/ALT 200"s, bit higher than on admission Vital Signs - 24 hr 10/18/17 10/19/17 10/19/17 21:14 00:30 03:30 Temperature 99 F Pulse Rate 72 Respiratory 18 18 18 Rate Blood Pressure 130/82 10/19/17 10/19/17 10/19/17 06:26 11:17 13:53 Temperature 97 F L 97.7 F 98.4 F Pulse Rate 64 65 71 Respiratory 18 18 18 Rate Blood Pressure 129/75 109/66 118/73 10/19/17 18:04 Temperature 97.7 F Pulse Rate 72 Respiratory 16 Rate Blood Pressure 110/73 Laboratory Tests 10/16/17 10/17/17 10/17/17 Unknown 07:40 07:40 WBC 4.6 RBC 4.54 Hgb 14.0 Hct 41.4 MCV 91.2 MCH 30.9 MCHC 33.9 RDW 14.3 Plt Count 181 D MPV 7.3 L Sodium 142 Potassium 3.6 Chloride 105 Carbon Dioxide 27 Anion Gap 10 BUN 16 Creatinine 0.8 Creat Clearance w eGFR > 60 Random Glucose 121 H D Calcium 8.7 Total Bilirubin 1.0 Direct Bilirubin AST 197 H ALT 152 H D Alkaline Phosphatase 149 H Total Protein 7.3 Albumin 3.4 Urine Color Heidy Urine Appearance Clear Urine pH 5.0 Ur Specific [place] 1.025 Urine Protein 1+ H Urine Glucose (UA) Negative Urine Ketones Negative Urine Blood Negative Urine Nitrite Negative Urine Bilirubin Negative Urine Urobilinogen 4.0 e.u/dl Ur Leukocyte Esterase Negative Urine WBC (Auto) 1 Urine RBC (Auto) 3 Ur Epithelial Cells Rare Urine Mucus Few RPR Titer 10/17/17 10/19/17 07:40 07:40 WBC RBC Hgb Hct MCV MCH MCHC RDW Plt Count MPV Sodium Potassium Chloride Carbon Dioxide Anion Gap BUN Creatinine Creat Clearance w eGFR Random Glucose Calcium Total Bilirubin 0.4 Direct Bilirubin 0.2 AST 224 H ALT 208 H D Alkaline Phosphatase 125 H D Total Protein 6.7 Albumin 3.0 L Urine Color Urine Appearance Urine pH Ur Specific [place] Urine Protein Urine Glucose (UA) Urine Ketones Urine Blood Urine Nitrite Urine Bilirubin Urine Urobilinogen Ur Leukocyte Esterase Urine WBC (Auto) Urine RBC (Auto) Ur Epithelial Cells Urine Mucus RPR Titer Nonreactive Ass/plan: 51 yo male with alcohol, nicotine and cocaine dependence is here for detox. Liver enzymes noted to be high- pt without abd pain, no fever, will repeat lab tomorrow. changed librium to valium, discontniued tylenol.
[2017-10-19] MEDS: diazePAM 5 MG TABLET PO SCH (22:24)
[2017-10-19] MEDS: THIAMINE HCL 100 MG TABLET (FP) PO SCH (22:24)
[2017-10-19] MEDS: MELATONIN 5 MG TABLETS PO PRN (22:24)
[2017-10-19] MEDS ORDERED: chlordiazePOXIDE HCL 10 MG CAPSULE PO SCH (23:00)
[2017-10-20] MEDS: PATIENT'S OWN MEDICATION (NON-FORMULARY) (Penicillin V Potassium [Pen Vee K -] 500 MG) PO SCH (05:31)
[2017-10-20] MEDS: diazePAM 5 MG TABLET PO SCH (05:31)
[2017-10-20 06:07] VITALS: BP 105/62; PULSE 68; TEMP 97.6
[2017-10-20 11:08] LABS: ALBUMIN 3.2 g/dl (3.4-5.0); ALK PHOS 116 U/L (45-117); BILIRUBIN,DIRECT < 0.2 mg/dL (0.0-0.2); BILIRUBIN,TOTAL 0.4 mg/dL (0.2-1.0); SGOT/AST 194 U/L (15-37); SGPT/ALT 216 U/L (12-78); TOT PROT 6.9 g/dl (6.4-8.2)
--- NOTE | 2017-10-20 11:18 | PN ---
[facility] Progress Note (SOAP) Subjective: pt states feeling fine- going home today- does not need any meds prescribed- has them at home pt completed detox protocol
--- NOTE | 2017-10-20 11:26 | DS ---
[facility] Detox Discharge Summary Admission Date: 10/16/17 Discharge Date: 10/20/17 - History Present History: Alcohol Dependence, Cannabis Dependence Additional Comments: 51 yo male with alcohol, nicotine and cocaine dependence completed detox PMHX: HIV+. - Physical Exam Results Vital Signs: Vital Signs Temperature 97.6 F 10/20/17 06:07 Pulse Rate 68 10/20/17 06:07 Respiratory Rate 18 10/20/17 06:07 Blood Pressure 105/62 10/20/17 06:07 O2 Sat by Pulse Oximetry (%) - Treatment Hospital Course: Detox Protocol Followed, Detoxed Safely, Responded well, Discharged Condition Good - Medication Discharge Medications: Ambulatory Orders Emtricitab/Rilpivirine/Tenofov [Complera -] 1 each PO DAILY 30 Days #30 tablet 08/31/17 Penicillin V Potassium [Pen Vee K -] 500 mg PO Q6H 10/16/17 - Diagnosis (1) Liver enzyme elevation Status: Acute (2) Alcohol dependence with uncomplicated withdrawal Status: Acute (3) HIV (human immunodeficiency virus infection) Status: Chronic - AMA Did Patient Leave Against Medical Advice: No
== END 2017-10-20 09:18 | disposition home or self-care (01) | DRG 774 ==
LOC: YASAS 14:46 → Y3N 17:39
PROC: HZ2ZZZZ Detoxification Services for Substance Abuse Treatment (ICD-10-PCS; principal; 2017-10-15)
DX: F10.230 Alcohol dependence with withdrawal, uncomplicated (principal); F14.20 Cocaine dependence, uncomplicated; F12.20 Cannabis dependence, uncomplicated; Z21 Asymptomatic human immunodeficiency virus [HIV] infection status; R74.8 Abnormal levels of other serum enzymes; B18.2 Chronic viral hepatitis C; R63.4 Abnormal weight loss; Z68.22 Body mass index [BMI] 22.0-22.9, adult
CPT/HCPCS: 36415; 80053; 80076; 81003; 81015; 85027; 86593; 93005; 93010

== ENCOUNTER 2024-10-31 17:03 | Inpatient (IN) | payer OTHER ==
[2024-10-31 17:23] VITALS: BMI 21.9
[2024-10-31] MEDS ORDERED: DICYCLOMINE HCL 10 MG CAPSULE PO PRN (17:43)
[2024-10-31] MEDS ORDERED: IBUPROFEN 400 MG TABLET (FP) PO PRN (17:43)
[2024-10-31] MEDS ORDERED: IBUPROFEN 600 MG TABLET (FP) PO PRN (17:43)
[2024-10-31] MEDS ORDERED: POLYETHYLENE GLYCOL (HEALTHYLAX) 3350 17 GM PACKET PO PRN (17:43)
[2024-10-31] MEDS ORDERED: ONDANSETRON *ODT* 4 MG TABLET SL PRN (17:43)
[2024-10-31] MEDS ORDERED: LOPERAMIDE HCL 2 MG CAPSULE PO PRN (17:43)
[2024-10-31] MEDS ORDERED: NALOXONE (NARCAN) HCL 4 MG/0.1 ML SPRAY NS PRN (17:43)
[2024-10-31] MEDS ORDERED: MAGNESIUM HYDROX 2400MG/30ML ORAL SUSPENSION 30 ML CUP PO PRN (17:43)
[2024-10-31] MEDS: MELATONIN 5 MG TABLETS PO SCH (21:28)
[2024-10-31] MEDS: THIAMINE 100 MG TABLET PO SCH (21:28)
[2024-11-01] MEDS: BICTEGRAV/EMTRICIT/TENOFOV (BIKTARVY) 50-200-25 MG TABLET PO SCH (10:08)
[2024-11-01] MEDS: GABAPENTIN 300 MG CAPSULE PO SCH (10:08)
[2024-11-01] MEDS: PRENATAL VITAMINS W/ FOLIC ACID TABLET (FP) PO SCH (10:08)
[2024-11-01] MEDS: LISINOPRIL 5 MG TABLET PO SCH (10:08)
[2024-11-01 11:10] LABS: MCHC 34.2 g/dl (32.3-36.5); MEAN CELL VOLUME 93.5 fl (79.0-92.2); MEAN PLT VOLUME 9.5 fl (9.4-12.4); RDW 12.1 % (12.2-16.1)
[2024-11-01 11:14] LABS: GLUCOSE,RANDOM 156 mg/dL (74-106); TOT PROT 7.4 g/dl (6.4-8.2)
[2024-11-01 11:15] LABS: CO2 24 mmol/L (21-32)
[2024-11-01 11:17] LABS: ALK PHOS 70 U/L (40-150)
[2024-11-01 11:20] LABS: CREATININE 0.88 mg/dL (0.55-1.3); SGOT/AST 63 U/L (5-34); SGPT/ALT 62 U/L (0-55)
[2024-11-01] MEDS: ACETAMINOPHEN 325 MG TABLET (FP) PO PRN (17:15)
[2024-11-01] MEDS: guaiFENesin 600 MG TABLET.ER (FP) PO PRN (22:05)
[2024-11-02] MEDS: BENZONATATE 200 MG CAPSULE PO PRN (17:09)
[2024-11-02] MEDS: BENZOCAINE/MENTHOL (CHLORASEPTIC ) LOZENGE MM PRN (20:08)
[2024-11-02] MEDS: ALBUTEROL SO4 HFA INHALER IH PRN (20:55)
[2024-11-02] MEDS: METHOCARBAMOL 500 MG TABLET PO PRN (20:59)
[2024-11-02] MEDS: hydrOXYzine PAMOATE 25 MG CAPSULE (FP) PO PRN (20:59)
[2024-11-03] MEDS: MAG HYDROX/AL HYDROX/SIMETH 30 ML UNIT-DOSE CUP PO PRN (10:07)
[2024-11-03] MEDS: BISMUTH SUBSALICYLATE 524 MG/30 ML PO PRN (23:01)
[2024-11-04] MEDS: LISINOPRIL 10 MG TABLET PO SCH (10:41)
[2024-11-04] MEDS: INSULIN (NOVOLOG) ASPART 100 UNITS/ML 10ML VIAL SQ ONE ×2 (13:58→16:52)
[2024-11-04] MEDS ORDERED: INSULIN (NOVOLOG) ASPART 100 UNITS/ML 10ML VIAL SQ SCH ×2 (16:30)
[2024-11-04] MEDS: INSULIN (NOVOLOG) ASPART 100 UNITS/ML 10ML VIAL SQ SCH ×2 (16:40→16:53)
[2024-11-05] MEDS ORDERED: INSULIN ASPART SLIDING SCALE (NOVOLOG) 1 VIAL SQ ONE (04:29)
[2024-11-05 08:51] VITALS: BP 122/76; PULSE 77; RESP 15; TEMP 95.9
== END 2024-11-05 10:15 | disposition home or self-care (01) | DRG 774 ==
LOC: YASAS 17:03 → Y3N 20:47
PROVIDERS: ADMIT Neuromusculoskeletal Medicine & OMM; ATTEND Student in an Organized Health Care Education/Training Program
PROC: HZ2ZZZZ Detoxification Services for Substance Abuse Treatment (ICD-10-PCS; principal; 2024-10-31)
DX: F10.230 Alcohol dependence with withdrawal, uncomplicated (principal); F14.20 Cocaine dependence, uncomplicated; Z21 Asymptomatic human immunodeficiency virus [HIV] infection status; I10 Essential (primary) hypertension; E11.59 Type 2 diabetes mellitus with other circulatory complications; Z79.84 Long term (current) use of oral hypoglycemic drugs; Z87.891 Personal history of nicotine dependence; Z79.899 Other long term (current) drug therapy
CPT/HCPCS: 36415; 80053; 80305; 80307; 82962; 85027; 86780; 93005; 93010